=== PATIENT | female | born 2000 | race Caucasian/White ===

== ENCOUNTER 2018-05-12 17:29 | Emergency (ER) ==
--- NOTE | 2018-05-13 15:24 | UC ---
- Progress Note Progress Note: NO X-RAY STUDIES ON 05/12/18 Discharge - Sign-Out/Discharge Documenting (check all that apply): Patient Departure All imaging exams completed and their final reports reviewed: No Studies - Discharge Plan Condition: Stable Disposition: LEFT WITHOUT BEING SEEN - Billing Disposition and Condition Condition: STABLE Disposition: Left Without Being Seen
== END 2018-05-12 17:41 | disposition left against medical advice (07) ==
LOC: UCCORT 17:29
DX: S99.922A Unspecified injury of left foot, initial encounter (principal); Z53.21 Procedure and treatment not carried out due to patient leaving prior to being seen by health care provider

== ENCOUNTER 2018-05-13 07:01 | Emergency (ER) | payer BC ==
[2018-05-13 07:31] VITALS: BP 134/91
--- NOTE | 2018-05-13 07:54 | UC ---
Lower Extremity/Ankle HPI - HPI Summary HPI Summary: 18-year-old woman comes to clinic today with a complaint of left ankle and foot pain. It started yesterday during [facility] women's field hockey practice. She rolled the ankle inward. She felt a pop. She's been using some crutches as weightbearing makes the pain worse resting makes the pain better. She's been icing it and taking ibuprofen which also helps. There is a sports athletic trainer who requested that she get x-rays to ensure there is no fracture. No skin injury. - History of Current Complaint Chief Complaint: UCLowerExtremity Stated Complaint: LEFT FOOT COMPLAINT Time Seen by Provider: 05/13/18 07:32 Hx Last Menstrual Period: ~04/11/18 Pain Intensity: 4 - Allergies/Home Medications Allergies/Adverse Reactions: Allergies Allergy/AdvReac Type Severity Reaction Status Date / Time No Known Allergies Allergy Verified 05/13/18 07:34 Home Medications: Home Medications NK [No Home Medications Reported] 05/13/18 [History Confirmed 05/13/18] PMH/Surg Hx/FS Hx/Imm Hx Previously Healthy: Yes - Surgical History Surgical History: Yes Surgery Procedure, Year, and Place: Tonsillectomy, 2016, [place] - Family History Known Family History: Negative: Cardiac Disease, Diabetes - Social History Occupation: Student Alcohol Use: Occasionally Substance Use Type: None Smoking Status (MU): Never Smoked Tobacco Review of Systems Constitutional: Negative Skin: Negative Eyes: Negative ENT: Negative Respiratory: Negative Cardiovascular: Negative Gastrointestinal: Negative Motor: Negative Neurovascular: Negative Musculoskeletal: Other: - See history of present illness Neurological: Negative Psychological: Negative Is Patient Immunocompromised?: No All Other Systems Reviewed And Are Negative: Yes Physical Exam Triage Information Reviewed: Yes Appearance: Well-Appearing, No Pain Distress, Well-Nourished Vital Signs: Initial Vital Signs Temp 98.4 F 05/13/18 07:25 Pulse 80 05/13/18 07:25 Resp 14 05/13/18 07:25 BP 134/91 05/13/18 07:25 Pulse Ox 100 05/13/18 07:25 Vital Signs Reviewed: Yes Eye Exam: Normal ENT Exam: Normal Neck exam: Normal Neck: Positive: Supple Respiratory Exam: Normal Respiratory: Positive: No respiratory distress Musculoskeletal: Positive: Other: - Patient has mild tenderness to palpation just distal to the left fibula there is also some swelling there. There is no ecchymosis. The Achilles tendon is intact toes and ankle have full range of motion full-strength there is no sensation deficits. Neurological Exam: Normal Neurological: Positive: Alert Psychological Exam: Normal Skin Exam: Normal Lower Extremity Course/Dx - Course Course Of Treatment: Order Information: FOOT LEFT 3+ VWS. Accession Number: [id number]. CPT: 18162. Indication: Left foot pain. 3 views of left foot demonstrates no fracture or dislocation. No other bone or joint. abnormality is identified. IMPRESSION: No fracture of the left foot is noted. . <Electronically signed by Deepa Bonilla MD in OV> 05/13/18823. Dictated By: Deepa Bonilla MD. Dictated Date/Time: 05/13/18823. Transcribed Date/Time: 05/13/18819. Order Information: ANKLE LEFT 3+VWS. Accession Number: [id number]. CPT: 09106. Indication: Left ankle injury. 3 views of left ankle demonstrates ankle mortise to be intact. No fracture is identified. IMPRESSION: No fracture of the left ankle is noted. . <Electronically signed by Deepa Bonilla MD in OV> 05/13/18824. Dictated By: Deepa Bonilla MD. Dictated Date/Time: 05/13/18824. Transcribed Date/Time: 05/13/18823. Discussed the x-ray reports with the patient. Will use an Andrea wrap and a gel splint and the patient will continue to use crutches and weightbearing as tolerated. She will follow up with her sports athletic trainer. Recheck sooner if worse - Differential Dx/Diagnosis Provider Diagnoses: LEFT ANKLE SPRAIN Discharge - Sign-Out/Discharge Documenting (check all that apply): Patient Departure All imaging exams completed and their final reports reviewed: Yes - Discharge Plan Condition: Stable Disposition: HOME Patient Education Materials: Ankle Sprain (ED) Referrals: [facility] [Outside] Additional Instructions: FOLLOW UP WITH YOUR DOCTOR IF NOT COMPLETELY IMPROVED. GET RECHECKED FOR ANY WORSENING OF YOUR CONDITION OR QUESTIONS OR CONCERNS. - Billing Disposition and Condition Condition: STABLE Disposition: Home - Attestation Statements Document Initiated by Scribe: No
--- NOTE | 2018-05-13 08:27 | RAD ---
Indication: Left foot pain. 3 views of left foot demonstrates no fracture or dislocation. No other bone or joint abnormality is identified. IMPRESSION: No fracture of the left foot is noted.
--- NOTE | 2018-05-13 08:28 | RAD ---
Indication: Left ankle injury. 3 views of left ankle demonstrates ankle mortise to be intact. No fracture is identified. IMPRESSION: No fracture of the left ankle is noted.
== END 2018-05-13 08:50 | disposition home or self-care (01) ==
LOC: UCCORT 07:01
DX: S93.402A Sprain of unspecified ligament of left ankle, initial encounter (principal); X50.0XXA Overexertion from strenuous movement or load, initial encounter; Y93.65 Activity, lacrosse and field hockey; Y92.214 College as the place of occurrence of the external cause
CPT/HCPCS: 99212; G0463